=== PATIENT | male | born 2000 | race Caucasian/White ===

== ENCOUNTER 2018-12-27 16:42 | Emergency (ER) | payer OTHER ==
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
[2018-12-27 16:55] VITALS: BP 152/75
[2018-12-27] MEDS ORDERED: IBUPROFEN 600 MG TABLET PO STA (17:07)
[2018-12-27] MEDS ORDERED: ACETAMINOPHEN 325 MG TABLET PO STA (17:07)
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
== END 2018-12-27 18:07 | disposition home or self-care (01) ==
LOC: ED 16:42
DX: S20.219A Contusion of unspecified front wall of thorax, initial encounter (principal); S60.512A Abrasion of left hand, initial encounter; S60.511A Abrasion of right hand, initial encounter; S60.419A Abrasion of unspecified finger, initial encounter; V43.52XA Car driver injured in collision with other type car in traffic accident, initial encounter
CPT/HCPCS: 71046; 99282; 99283; A9270